=== PATIENT | male | born 1965 | race Caucasian/White ===

== ENCOUNTER → 2018-11-16 | Outpatient (CLI) | payer OTHER, SELFPAY ==
--- NOTE | 2018-11-16 17:58 | MRI_ITS ---
HISTORY:LEFT KNEE PAINinjured while walking 09/01/18, pain lateral knee MRI EXAMINATION OF THELeft KNEE COMPARISON: None TECHNIQUE: Coronal proton density, fat-suppressed T2 and oblique section T2, sagittal fat-suppressed T2 and proton density and axial fat-suppressed T2 # of images including paperwork:[id number] FINDINGS: Bones: No evidence of an acute fracture or significant marrow edema. Enthesophyte at the insertion of the quadriceps tendon on the patella medial lateral joint space narrowing with marginal osteophytes. Ligaments and tendons: The anterior cruciate ligament is intact There is bowing of the posterior cruciate ligament appears thin but no full-thickness tear is noted. There is fluid that is seen posterior to the posterior cruciate ligament as well as anterior to the ligament suggesting a ganglion cyst. The best seen on image 12 series 7 coronal Abnormal signal seen within the medial collateral ligament at the femoral attachment suggesting chronic sprain. Partial tear at the posterior fibers of the lateral ligament superficial portion. The deep portion at Iliotibial band, collateral ligament, biceps femoris tendon the tendon are intact. Presents right is tendons are intact Extensor mechanism: The quadriceps tendon and patellar tendon are intact. There is a small amount of fluid within the deep infrapatellar bursa. Minimal subcutaneous edema overlying the lateral aspect of the inferior patella. The medial and lateral retinaculum are intact. Knee joint: There is a popliteal cyst as well as fluid within the semimembranosus tibial collateral bursa. A loose body is seen within the posterior joint space seen on coronal image 9 series 7 measuring approximately 6.4 mm in diameter A large body is seen at the anterior joint space that measures approximately 1.2 cm transverse by approximately 7 mm craniocaudad in approximately 1 cm AP. This extends into Hoffa's fat pad with fluid surrounding the loose body. There is a torn suprapatellar plica Medial compartment: There is a horizontal tear involving the middle and posterior one third of the medial meniscus that extends to the inferior articular surface of the middle one third. This is seen on sagittal image is 19 through 21. The articular cartilage is frayed at the weightbearing portion of the lateral aspect medial femoral condyle as well as at the anteromedial tibia Lateral compartment: No evidence of meniscal tear. The articular cartilage is grossly intact Patellofemoral articulation: The articular cartilage of the patella is frayed at the apex and lateral facet in its central portion. The trochlear cartilage is intact. MRI/Lower Ext Joint Only (Routine) IMPRESSION: Osteoarthritis Joint effusion Loose bodies as discussed Horizontal tear of the middle and posterior one third of the medial meniscus as discussed Ganglion cyst adjacent to the posterior cruciate lumen. The posterior cruciate ligament appears thin with bowing of the ligament Partial tear of the medial collateral ligament involving the posterior fibers. Chronic probable partial tear of the anterior fibers Fluid within the deep infrapatellar bursa Popliteal cyst as well as fluid within the semimembranosus tibial collateral ligament bursa at 2210 Reported and signed by: Amy Mustafa DO Electronically Signed: Amy Mustafa DO at 22:09 EDT Tel , Service support ,
== END | disposition home or self-care (01) ==
LOC: MRI 17:51
PROVIDERS: Family Provider Family Medicine; PCP Family Medicine
DX: S83.422A Sprain of lateral collateral ligament of left knee, initial encounter (principal); S83.512A Sprain of anterior cruciate ligament of left knee, initial encounter; S12.090A Other displaced fracture of first cervical vertebra, initial encounter for closed fracture
CPT/HCPCS: 73721